=== PATIENT | male | born 1955 | race Caucasian/White ===

== ENCOUNTER 2018-07-06 07:44 | Day surgery (SDC) | payer BC ==
[~2018-07-06] VITALS: Ht 188 cm; Wt 127.0 kg
[~2018-07-06 07:44] MED LIST: ADULT LOW DOSE81 MG PO; MELOXICAM7.5 MG PO; NORCO 5-325 TA1 EACH PO; UROXATRAL10 MG PO
--- NOTE | 2018-07-06 10:25 | NUR ---
07/06/18 1025 Caitlin Schroeder 1017 PT ARRIVED IN PACU SLEEPY WITH NO C/O'S. ABD SOFT.
--- NOTE | 2018-07-06 17:52 | OR ---
[facility] [address], [place] [address] Signed DATE OF OPERATION: 07/06/2018 SURGEON: Khadar River MD PREOPERATIVE DIAGNOSIS: Personal history of colonic polyps. POSTOPERATIVE DIAGNOSES: 1. A 1 cm polyp at 12 cm in left lateral rectum (tattoo). 2. [id number]-gcnkjxpl internal hemorrhoids. PROCEDURES: 1. Colonoscopy, snare polypectomy, and injection of tattoo. 2. Rigid proctoscopy. ESTIMATED BLOOD LOSS: None. 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 He spoke of a colonoscopy in 2007, while living in [place], [place]. That particular colonoscopy was negative. He is said to have a previous personal history of colonic polyps. He said there is no family history of colon cancer or polyps. He said he has no lower GI complaints. I met with Babak in the office and I gave him a pamphlet on colonoscopy as well as colorectal polyps and cancer. We reviewed those together along with the risks including, but not limited to gas, bloating, crampy abdominal pain, bleeding, perforation, requiring surgery, and missed diagnosis. We also discussed the need for IV conscious sedation. He had expressed understanding and wish to proceed. PROCEDURE NOTE: Babak was taken into our endoscopy suite and placed in the left lateral decubitus position. He was given IV sedation with 6 mg of Versed and 125 mcg of fentanyl. A digital rectal exam was performed and he does have some swelling and induration to the prostate. The left-sided certainly more prominent than the right. After this, the adult colonoscope was introduced and advanced all around into the cecum under direct visualization of camera without difficulty. His prep was good. The scope was slowly withdrawn. We saw a small polyp back at 22 cm and it was easily removed with the help of hot biopsy forceps. It was just above the rectum. In the rectum itself, he had a 1 cm sessile polyp, which we removed with the help of the snare. We injected a tattoo just distal to that polypectomy site. After that, we retroflexed the scope. He has Electronically Signed By: KHADAR RIVER MD 07/06/18 1752 PATIENT NAME: BABAK BARROW OPERATIVE REPORT DATE OF : 53 REPORT #: [id number] PHYSICIAN: KHADAR RIVER MD PCP: GREGORY COOPER MD REPORT IS CONFIDENTIAL AND NOT TO BE RELEASED WITHOUT AUTHORIZATION [facility] [address] [place] [id number] Signed just a little bit internal hemorrhoid tissue. After this, the rigid proctoscope was inserted and the polypectomy site is at 12 cm in the left lateral rectal position. After this, the gas was allowed to escape and rigid proctoscope was removed. Babak tolerated the procedure quite well. RECOMMENDATIONS: I will see Babak back in my office in 7 to 14 days to review his results. It looks like he will need colonoscopy every 5 years. Khadar River MD ALB/MODL /[id number] cc: MD Lisa Rubi MD Andrew L Bower, MD Copies: GREGORY COOPER MD,LISA RIVER,KHADAR Auguste MD ~ Electronically Signed By: KHADAR RIVER MD 07/06/18 1752 PATIENT NAME: BABAK BARROW OPERATIVE REPORT DATE OF : 53 REPORT #: [id number] PHYSICIAN: KHADAR RIVER MD PCP: GREGORY COOPER MD REPORT IS CONFIDENTIAL AND NOT TO BE RELEASED WITHOUT AUTHORIZATION
== END 2018-07-06 11:00 | disposition home or self-care (01) ==
LOC: DS 07:44 → OPS 07:44 → DS 09:00 → OPS 09:00
PROVIDERS: Colon & Rectal Surgery
PROC: 0DBE8ZZ Excision of Large Intestine, Via Natural or Artificial Opening Endoscopic (ICD-10-PCS; 2018-07-06)
PROC: 3E0H8GC Introduction of Other Therapeutic Substance into Lower GI, Via Natural or Artificial Opening Endoscopic (ICD-10-PCS; 2018-07-06)
PROC: 0DBP8ZZ Excision of Rectum, Via Natural or Artificial Opening Endoscopic (ICD-10-PCS; principal; 2018-07-06 09:00)
DX: Z12.11 Encounter for screening for malignant neoplasm of colon (principal); C20 Malignant neoplasm of rectum; K64.8 Other hemorrhoids; K63.5 Polyp of colon; E78.5 Hyperlipidemia, unspecified; Z98.890 Other specified postprocedural states; Z79.899 Other long term (current) drug therapy
CPT/HCPCS: 99153; G0500; J2250; J3010; J7120

== ENCOUNTER 2019-04-04 12:35 | Observation (INO) | payer MEDICARE ==
[~2019-04-04] VITALS: Ht 188 cm; Wt 129.0 kg
[~2019-04-04 12:35] MED LIST changes: +LIPITOR20 MG PO
--- NOTE | 2019-04-04 16:45 | NUR ---
64 yr old male patient admitted to ccu from ED VIA STRETCHER UNDER DR. STEWART. PATIENT WAS CARDIOVERTED IN FIELD WITH 100 JOULES PT WAS FOUND TO HAVE HR AT 250 BEATS PER MIN. WITH CARDIOVERTION HR TO 140 SVT. ADENOCARD 6 MG IV GIVEN WHICH SHOWED AFLUTTER. UPON ADMIT PATIENT IS AWAKE AND ALERT, COOPERATIVE. DENIES PAIN AT THIS TIME. DENIES SHORTNESS OF BREATH. ADMISSION PROCESS STARTED.
--- NOTE | 2019-04-04 18:11 | NUR ---
SITTING UP IN BED FOR DINNER. IS W/O C/O. REMAINS IN AFLUTTER. HR-95 TO 110.
--- NOTE | 2019-04-04 18:41 | NUR ---
AMBULATATED TO BR TO VOID 200 ML OF YELLOW URINE. HR TO 133 SLIGHT LIGHT HEADED WITH MOVEMENT.
--- NOTE | 2019-04-04 18:54 | NUR ---
REMAINS IN AFIB/FLUTTER. VERY TALKATIVE.
--- NOTE | 2019-04-04 19:31 | NUR ---
IVF HUNG AT 100 ML/HR. TOPROL 25 XL GIVEN AND LOVONEX 40 MG SQ GIVEN. PATIENT IS W/O C/O.
--- NOTE | 2019-04-04 20:00 | NUR ---
EYES CLOSED, RESTFUL. HR 70'S.
--- NOTE | 2019-04-04 20:45 | NUR ---
PT AWAKE, ASSESSMENT DONE. PT HAS MANY QUESTIONS ABOUT WHAT ATRIAL FLUTTER IS. QUESTIONS ANSWERED. AMB TO BR, HR UP TO 108. PT STATES FEELS TIRED, EXPLAINED WITH A FLUTTER HAS DECREASED CARDIAC OUTPUT (PUMP NOT WORKING WELL) AND WILL FEEL TIRED. GIVEN SHERBET PER REQUEST.
--- NOTE | 2019-04-04 22:32 | NUR ---
SLEEPING AT THIS TIME.
--- NOTE | 2019-04-05 00:23 | NUR ---
AWAKENS EASILY, ASSESSMENT DONE. AMB TO BR HR 70-80'S UNTIL AMB BACK TO BED THEN BRIEFLY UP TO 108. NO DIZZYNESS OR SOB. PT HAS HX OF SLEEP APNEA AND USES CPAP AT HOME. PT STATES IF HE KEEPS HOB ELEVATED HIS TONGUE WILL NOT FALL BACK. HAS NOT HAD ANY EPISODES OF DESATURATION. READY TO GO BACK TO SLEEP.
--- NOTE | 2019-04-05 02:05 | NUR ---
SLEEPING, REMAINS IN A FLUTTER, HR 70'S.
--- NOTE | 2019-04-05 03:19 | NUR ---
AWAKE, AMB TO BR. HR UP TO 120'S. STATES DID FEEL A LITTLE DIZZY WITH THIS. HR BACK TO 70'S WHEN BACK TO BED. NO C/O.
--- NOTE | 2019-04-05 05:03 | NUR ---
AMB TO BR. SL DIZZY. NO CHANGE.
--- NOTE | 2019-04-05 06:29 | NUR ---
AMB TO BR HR TO 115, EXPERIENCED SL DIZZYNESS. REMAINS A FLUTTER. GIVEN CUP OF COFFEE. PT HAS READ THE HANDOUTS THAT WERE GIVEN TO HIM ON A FLUTTER.
--- NOTE | 2019-04-05 07:30 | NUR ---
REPORT RECIEVED. ECHO BEING DONE AT BEDSIDE.
--- NOTE | 2019-04-05 07:39 | EKG ---
[facility] [address] [facility] [place] [address] Signed Supraventricular tachycardia Nonspecific ST abnormality Abnormal ECG When compared with ECG of 14-APR-2017 13:23, Vent. rate has increased BY [address] now depressed in Anterior leads Nonspecific T wave abnormality now evident in Anterior leads Confirmed by ROCHELLE STEWART MD ([id number]) on 04/05/2019 7:39:34 AM Electronically Signed By: ROCHELLE STEWART MD 04/05/19 0739 PATIENT NAME: MIKE BARROW MYLES Electrocardiogram DATE OF : 53 PHYSICIAN: ROCHELLE STEWART MD REPORT #: [id number] REPORT IS CONFIDENTIAL AND NOT TO BE RELEASED WITHOUT AUTHORIZATION
--- NOTE | 2019-04-05 07:40 | NUR ---
ECHO COMPLETE. UP TO BR TO VOID. HR 140 WITH EXERTION. PATIENT STATES HE FEELS HEART BEATING HARD. SLIGHT SHORTNESS OF BREATH WITH EXERTION. ASSESSMENT DONE UPON RETURN TO BED. AFTER FEW SECONDS UPON RETUN TO BED, HR TO 80'S. REMIANS IN AFLUTTER.
--- NOTE | 2019-04-05 07:40 | EKG ---
[facility] [address] [facility] [place], [place] [address] Signed Atrial flutter with variable AV block Nonspecific ST abnormality Abnormal ECG Confirmed by ROCHELLE STEWART MD ([id number]) on 04/05/2019 7:39:51 AM Electronically Signed By: ROCHELLE STEWART MD 04/05/19 0740 PATIENT NAME: MIKE BARROW Electrocardiogram DATE OF : 53 PHYSICIAN: ROCHELLE STEWART MD REPORT #: [id number] REPORT IS CONFIDENTIAL AND NOT TO BE RELEASED WITHOUT AUTHORIZATION
--- NOTE | 2019-04-05 08:46 | NUR ---
DR. STEWART HERE TO SEE PATIENT. PATIENT EATING BREAKFAST, TOLERATING WELL.
--- NOTE | 2019-04-05 09:00 | NUR ---
TOOK BREAKFAST WELL. TO BR TO VOID AND EXPELL STOOL, BACK TO BED WITH PROBLEMS. HR CONTINUES TO GO UP TO 140'S WITH EXERTION. ROUTINE MEDICATIONS GIVEN EARLIER.
--- NOTE | 2019-04-05 11:05 | NUR ---
SLEEPING, NO DISTRESS NOTED. HR-73 IN AFLUTTER.
--- NOTE | 2019-04-05 12:00 | NUR ---
ASSESSMENT UNCHANGED. DENEIS PAIN. TALKATIVE.
--- NOTE | 2019-04-05 16:15 | NUR ---
ASSESSMENT UNCHANGED. REFUSED SHOWER. SPONGE BATH GIVEN TOLERATED WELL.
--- NOTE | 2019-04-05 16:30 | NUR ---
AMBULATED IN HALLWAY ON MONITOR . HR TO 85-125. PATIENT STATES HE IS FEELING GOOD WITH AMBULATION.
--- NOTE | 2019-04-05 19:29 | NUR ---
REPORT TO NEXT SHIFT.PATIENT IS W/O C/O.
--- NOTE | 2019-04-05 20:06 | NUR ---
RESTING, STATES IS FEELING RELIEVED. UP TO BR TO VOID AND HR BRIEFLY TO 104 THEN BACK TO 70'S, NO DIZZYNESS. GIVEN HANDOUTS ON DIGOXIN AND METOPROLOL. PT HAS PLAN FOR DISCHARGE FOLLOW UP WITH DR COOPER LOCALLY AND KNOWS HE NEEDS TO SEE A DENTAL CHAIRSIDE ASSISTANT. GIVEN ICE CREAM FOR SNACK.
--- NOTE | 2019-04-05 21:29 | NUR ---
UP TO BR TO VOID AND BRUSH TEETH, HR BRIEFLY UP TO 130 WHILE BRUSHING TEETH. BACK TO BED WITHOUT PROBLEM. C/O L HIP THROBBING, POSS FROM BEING IN BED. GIVEN 650MG TYLENOL PO. HAS MANY QUESTIONS AND CONCERNS ABOUT HIS NEW MEDICATIONS AND POTENTIAL INTERACTIONS. ADVISED THAT THES ARE POTENTIAL INTERACTIONS AND NEED TO CONSULT WITH PHYCISIAN AND PHARMACIST.
--- NOTE | 2019-04-05 23:51 | NUR ---
HAS BEEN SLEEPING OFF AND ON. STATES IS BATTLING HIS SLEEP APNEA TONIGHT, LAST NIGHT WAS ABLE TO POSITION HOB TO PREVENT IT. HAVE NOT HAD PT ON CONT OXYMETRY BUT DID NOTE SOME SLOW RESP ON MONITOR. CONT TO HAVE SOME L HIP PAIN. AMB TO BR T VOID. HR REMAIN 70'S WHILE UP. TOO WARM, COVERS OFF AND TEMP IN ROOM DECREASED BY 1 DEGREE. GIVEN HOT COCOA TO HELP WITH SLEEP.
--- NOTE | 2019-04-06 01:36 | NUR ---
SLEEPING AT THIS TIME HR REMAINS 70'S.
--- NOTE | 2019-04-06 01:49 | NUR ---
AWAKE, UP TO BR TO VOID. HR 70'S UNTIL AMB BACK TO BEDSIDE AND TOOK A DRINK OF WATER HR BRIEFLY TO 130 THEN BACK TO 70'S. NO SOB OR DIZZYNESS.
--- NOTE | 2019-04-06 02:55 | NUR ---
UP TO VOID, NO TACHYCARDIA NOTED.
--- NOTE | 2019-04-06 04:36 | NUR ---
SLEEPING FOR SHORT INTERVALS 1-1 1/2 HRS AT A TIME. C/O FEELING TIRED. UP TO BR TO VOID. ALSO C/O BACK/HIP PAIN. TYLENOL OFFERED,DECLINED. HAVING PT TRY TO SLEEP IN RECLINER. CALL LIGHT IN REACH.
--- NOTE | 2019-04-06 06:06 | NUR ---
UP TO VOID AND THEN BACK TO BED. BACK/HIP FEELS BETTER AFTER BEING IN CHAIR. SLEPT POORLY DU TO SLEEP APNEA.
--- NOTE | 2019-04-06 06:07 | NUR ---
PT FEELS HE SLEPT POORLY DUE TO HIS SLEEP APNEA AND NOT WEARING CPAP THAT HE USES AT HOME. HIS HIP/BACK PAIN DID IMMPROVED FROM SPENDING TIME IN RECLINER. HAS VOIDED LARGE AMTS URINE FREQUENTLY. REMAINS IN A FLUTTER.
--- NOTE | 2019-04-06 06:29 | NUR ---
PT TO BR TO HAVE LARGE BROWN BM. JORGE WELL. HR BRIEFLY TO 114 THEN BACK TO 70'S. REMAINS AFLUTTER.
[2019-04-06] MEDS ORDERED: METOPROLOL SUCC25 MG PO (08:01)
[2019-04-06] MEDS ORDERED: DIGOX125 MCG PO (08:01)
--- NOTE | 2019-04-06 08:12 | NUR ---
DR STEWART INTO SEE PT AND PT IS DISCHARGED TO HOME THIS AM. ALL ORAL AND IV MEDICATIONS GIVEN. PT HAS BEEN UP TO THE BATHROOM X 2 SO FAR THIS AM.
--- NOTE | 2019-04-06 09:10 | NUR ---
PT GIVEN ALL HIS DISCHARGE INFORMATION, APPOINTMENTS MADE AND PHARAMCY INTO TALK WITH PT THIS AM. PT HAS A FREIND TO COME PICK HIM UP AND TAKE HIM HOME. ALL PERSONAL BELONGINGS SENT HOME WITH PT.
--- NOTE | 2019-04-06 09:26 | NUR ---
PT TRANSPORTED VIA WC TO THE FRONT AND THEN OUT TO THE CAR WHERE HIS FREIND DRIVE HIM HOME.
== END 2019-04-06 09:20 | disposition home or self-care (01) ==
LOC: ED 12:35 → CCU 12:36
PROVIDERS: ADMIT Internal Medicine
DX: I48.92 Unspecified atrial flutter (principal); E83.119 Hemochromatosis, unspecified; Z85.048 Personal history of other malignant neoplasm of rectum, rectosigmoid junction, and anus; Z88.1 Allergy status to other antibiotic agents; Z79.1 Long term (current) use of non-steroidal anti-inflammatories (NSAID); Z79.899 Other long term (current) drug therapy
CPT/HCPCS: 36415; 71045; 80048; 80053; 80162; 81001; 83735; 84439; 84443; 84484; 85025; 85610; 93005; 93010; 93306; 96361; 96372; 96374; 96375; 96376; 99285-25; G0378; J0153; J1160; J1650; J7030

== ENCOUNTER 2020-08-01 10:46 | Emergency (ER) | payer MEDICARE ==
[~2020-08-01] VITALS: Ht 188 cm; Wt 134.5 kg
[~2020-08-01 10:46] MED LIST changes: +ASPIRIN325 MG PO; +DIGOX125 MCG PO; +ELIQUIS5 MG PO; +METOPROLOL SUCC25 MG PO; +ULTRAM50 MG PO
--- OUTSIDE RECORDS SUMMARY | 2020-08-01 10:50 | XMS ---
PreManage Notification: MIKE BARROW Security Dinkey Dispatcher Events No recent Security Events currently on file [facility] There are no care providers on record at this time. Magda has no Care Guidelines for this patient. Steve VISIT COUNT (12 MO.) 1 SINDI Rucker TOTAL 1 NOTE: Visits indicate total known visits. ED/C VISIT TRACKING (12 MO.) 08/01/2020 10:47 S[facility]I [place] TYPE: Emergency COMPLAINT: - SOB NECK PAIN INPATIENT VISIT TRACKING (12 MO.) No inpatient visits to display in this time frame [email or web address]
[2020-08-01] MEDS ORDERED: NORCO 5-325 TA1 EACH PO (13:22)
== END 2020-08-01 13:40 | disposition home or self-care (01) ==
LOC: ED 10:46
DX: S16.1XXA Strain of muscle, fascia and tendon at neck level, initial encounter (principal); V59.9XXA Occupant (driver) (passenger) of pick-up truck or van injured in unspecified traffic accident, initial encounter; Z85.038 Personal history of other malignant neoplasm of large intestine; Z88.7 Allergy status to serum and vaccine; Z88.1 Allergy status to other antibiotic agents; Z79.899 Other long term (current) drug therapy; Z79.82 Long term (current) use of aspirin
CPT/HCPCS: 70490; 80053; 85025; 96361; 96374; 96375; 99284-25; J1100; J1200; J2270; J3475; J7030

== ENCOUNTER 2022-03-11 13:20 | Inpatient (IN) | payer MEDICARE ==
[~2022-03-11] VITALS: Ht 188 cm; Wt 132.0 kg
--- OUTSIDE RECORDS SUMMARY | 2022-03-11 13:22 | XMS ---
PreManage Notification: MIKE BARROW Security Award Clerk Events No recent Security Events currently on file CRITERIA MET - PDMP CARE PROVIDERS SANG CHERRY SIMON Veneer Supervisor/Grips Current PHONE: [phone] GREGORY COOPER Internal Medicine 08/02/2020-Current PHONE: Unknown Magda has no Care Guidelines for this patient. Care History Medical/Surgical 08/02/2020 [facility] - Patient is currently established with [facility]. If patient is seen in the ED during business hours. Please contact CHWs at [facility]. Care Recommendation: If this patient has had 5 or more Emergency Department visits in the last 12 months.\T\nbsp; Patient will require education on the scope and purpose of the ED as an acute care provider not a Primary Care Provider and should not be utilized for chronic conditions.\T\nbsp; These are guidelines and the provider should exercise clinical judgment when providing care. E.D. VISIT COUNT (12 MO.) 1 SINDI Rucker TOTAL 1 NOTE: Visits indicate total known visits. ED/UCC VISIT TRACKING (12 MO.) 03/11/2022 13:21 SINDI [place] TYPE: Emergency COMPLAINT: - NANCY INPATIENT VISIT TRACKING (12 MO.) 05/17/2021 05:36 Gregory [place] TYPE: Respiratory Therapy DIAGNOSES: - Solitary pulmonary nodule - Malignant neoplasm of rectum - Malignant (primary) neoplasm, unspecified - Generalized enlarged lymph nodes - Secondary malignant neoplasm of bone - Localized enlarged lymph nodes - Secondary malignant neoplasm of brain [id number]
--- NOTE | 2022-03-12 00:22 | EKG ---
[facility] [address] [facility] [place] [address] Signed Sinus tachycardia with fusion complexes Right bundle branch block T wave abnormality, consider inferior ischemia Abnormal ECG When compared with ECG of 04-APR-2019 12:49, Sinus rhythm has replaced Atrial flutter Right bundle branch block is now present Confirmed by ROCHELLE STEWART MD ([id number]) on 03/12/2022 12:22:27 AM Electronically Signed By: ROCHELLE STEWART MD 03/12/2221 PATIENT NAME: MIKE BARROW Electrocardiogram DATE OF : 53 PHYSICIAN: ROCHELLE STEWART MD REPORT #: [id number] REPORT IS CONFIDENTIAL AND NOT TO BE RELEASED WITHOUT AUTHORIZATION
[2022-03-13] MEDS ORDERED: LOVENOX120 MG/0.8 SUB-Q (09:53)
[2022-03-13] MEDS ORDERED: CELEBREX200 MG PO (11:46)
[2022-03-13] MEDS ORDERED: OXYCONTIN10 MG PO (11:47)
[2022-03-13] MEDS ORDERED: OXYCODONE HCL5 MG PO (11:48)
[2022-03-13] MEDS ORDERED: OMEPRAZOLE20 MG PO (11:50)
[2022-03-13] MEDS ORDERED: AMLODIPINE BESYL5 MG PO (11:51)
[2022-03-13] MEDS ORDERED: PROCHLORPERAZIN10 MG PO (11:53)
[2022-03-13] MEDS ORDERED: ENOXAPARIN150 MG/1 M SUB-Q (19:36)
== END 2022-03-14 10:30 | disposition home or self-care (01) | DRG 176 ==
LOC: ED 13:20 → CCU 16:57 → MS 03-13 14:31
PROVIDERS: ADMIT Internal Medicine; ATTEND Internal Medicine
DX: I26.99 Other pulmonary embolism without acute cor pulmonale (principal); C18.9 Malignant neoplasm of colon, unspecified; C79.51 Secondary malignant neoplasm of bone; I42.9 Cardiomyopathy, unspecified; Z66 Do not resuscitate; Z20.822 Contact with and (suspected) exposure to COVID-19; I48.0 Paroxysmal atrial fibrillation; G47.33 Obstructive sleep apnea (adult) (pediatric); R73.03 Prediabetes; M19.90 Unspecified osteoarthritis, unspecified site; I10 Essential (primary) hypertension; N40.0 Benign prostatic hyperplasia without lower urinary tract symptoms; E78.5 Hyperlipidemia, unspecified; E83.119 Hemochromatosis, unspecified; G89.3 Neoplasm related pain (acute) (chronic); Z88.1 Allergy status to other antibiotic agents; Z88.7 Allergy status to serum and vaccine; Z91.09 Other allergy status, other than to drugs and biological substances; Z98.890 Other specified postprocedural states; Z90.89 Acquired absence of other organs; Z79.899 Other long term (current) drug therapy
CPT/HCPCS: 36415; 71260; 80048; 80053; 83735; 84484; 85025; 85610; 85730; 93005; 93010; 93971; 94660; 99285-25; J1644; J1650; Q9967; U0003

== ENCOUNTER 2022-06-17 05:29 | Emergency (ER) | payer MEDICARE ==
[~2022-06-17] VITALS: Ht 188 cm; Wt 128.0 kg
[~2022-06-17 05:29] MED LIST changes: +AMLODIPINE BESYL5 MG PO; +CELEBREX200 MG PO; +ENOXAPARIN150 MG/1 M SUB-Q; +LOVENOX120 MG/0.8 SUB-Q; +OMEPRAZOLE20 MG PO; +OXYCODONE HCL5 MG PO; +OXYCONTIN10 MG PO; +PROCHLORPERAZIN10 MG PO
--- OUTSIDE RECORDS SUMMARY | 2022-06-17 05:33 | XMS ---
PreManage Notification: MIKE BARROW Security Senior Data Mining Analyst Events No recent Security Events currently on file CRITERIA MET - PDMP CARE PROVIDERS SANG CHERRY SIMON Well Digger/Marshmallow Maker Current PHONE: [phone] GREGORY COOPER Internal Medicine 08/02/2020-Current PHONE: Unknown Magda has no Care Guidelines for this patient. Care History Medical/Surgical 08/02/2020 [facility] - Patient is currently established with [facility]. If patient is seen in the ED during business hours. Please contact CHWs at [facility]. Care Recommendation: If this patient has had [...] providing care. E.D. VISIT COUNT (12 MO.) [address] [facility] TOTAL 2 NOTE: Visits indicate total known visits. ED/UCC VISIT TRACKING (12 MO.) 06/17/2022 05:30 SINDI [place] TYPE: Emergency COMPLAINT: - RIGHT SIDE WEAKNESS 03/11/2022 13:21 SINDI [place] TYPE: Emergency COMPLAINT: - SOB INPATIENT VISIT TRACKING (12 MO.) 03/11/2022 16:[address] [facility] [place] TYPE: Medical Surgical COMPLAINT: - BILATERAL PULMONARY EMBOLI DIAGNOSES: - Paroxysmal atrial fibrillation - Cardiomyopathy, unspecified - Essential (primary) hypertension - Do not resuscitate - Malignant neoplasm of colon, unspecified - Allergy status to other antibiotic agents - Neoplasm related pain (acute) (chronic) - Obstructive sleep apnea (adult) (pediatric) - Other specified postprocedural states - Malignant neoplasm of colon, unspecified - Contact with and (suspected) exposure to COVID-19 - Other director long term care (current) drug therapy - Unspecified osteoarthritis, unspecified site - Benign prostatic hyperplasia without lower urinary tract symptoms - Other allergy status, other than to drugs and biological substances - Acquired absence of other organs - Other allergy status, other than to drugs and biological substances - Essential (primary) hypertension - Hyperlipidemia, unspecified - Secondary malignant neoplasm of bone - Hemochromatosis, unspecified - Paroxysmal atrial fibrillation - Allergy status to other antibiotic agents - Hyperlipidemia, unspecified - Other director long term care (current) drug therapy - Neoplasm related pain (acute) (chronic) - Obstructive sleep apnea (adult) (pediatric) - Allergy status to serum and vaccine - Allergy status to serum and vaccine - Other pulmonary embolism without acute cor pulmonale - Hemochromatosis, unspecified - Acquired absence of other organs - Prediabetes - Cardiomyopathy, unspecified - Benign prostatic hyperplasia without lower urinary tract symptoms - Prediabetes - Other specified postprocedural states - Contact with and (suspected) exposure to COVID-19 - Do not resuscitate - Secondary malignant neoplasm of bone - Unspecified osteoarthritis, unspecified site [id number]
[2022-06-17] MEDS ORDERED: ELIQUIS5 MG PO (05:47)
[2022-06-17] MEDS ORDERED: NEURONTIN300 MG PO (07:44)
== END 2022-06-17 08:30 | disposition home or self-care (01) ==
LOC: ED 05:29
DX: M25.531 Pain in right wrist (principal); I48.92 Unspecified atrial flutter; Z88.1 Allergy status to other antibiotic agents; Z88.8 Allergy status to other drugs, medicaments and biological substances; Z85.038 Personal history of other malignant neoplasm of large intestine; Z85.830 Personal history of malignant neoplasm of bone
CPT/HCPCS: 36415; 73110; 80053; 85025; 85651; 86140; 93930; 93931; 96374; 96375; 96376; 99284-25; J1170; J2405; J7030